=== PATIENT | male | born 1950 | race Caucasian/White ===

== ENCOUNTER → 2020-11-10 12:21 | Outpatient (CLI) | payer MEDICARE, BC, SELFPAY ==
[2020-11-10 13:13] LABS: COVID19 -Nasal RAPID Negative (Negative)
== END ==
PROVIDERS: Visit Provider Physician Assistant
DX: J02.9 Acute pharyngitis, unspecified (principal); Z20.822 Contact with and (suspected) exposure to COVID-19; R05 Cough
CPT/HCPCS: 87635

== ENCOUNTER → 2024-09-07 08:03 | Outpatient (CLI) | payer MEDICARE, BC, SELFPAY ==
--- NOTE | 2024-09-07 08:10 | DI.MRI.S_ITS ---
PROCEDURE: MR KNEE RT WO CON INDICATIONS: tear of meniscus of rt knee TECHNIQUE: Noncontrast sagittal PD fast spin echo and T2 fast spin echo with fat saturation, sagittal 3-D FLASH with fat saturation; coronal T1 spin echo and PD fast spin echo with fat saturation, and axial PD fast spin echo with fat saturation through the knee. COMPARISON: None. FINDINGS: Image quality: Excellent. Menisci: There is medial extrusion of the medial meniscus into the medial gutter. There is linear oblique and vertically oriented high T2 signal intensity within the inner, middle, and peripheral 3rd of the medial meniscal body, demonstrating superior and inferior articular surface extension, indicating complex tearing. There is linear horizontal high T2 signal intensity within the inner, middle, and peripheral 3rd of the posterior horn medial meniscus, demonstrating inferior articular surface extension, indicating horizontal tearing. Lateral meniscal body demonstrates degenerative fraying of the free edge. Cruciate ligaments: The anterior and posterior cruciate ligaments appear intact. Medial structures: The medial collateral ligament appears intact, but demonstrates mild surrounding T2 signal elevation. Visualized portions of the pes anserinus tendons appear normal. No abnormal bursal fluid. Lateral structures: The lateral collateral ligament demonstrates mild T2 signal elevation at the femoral origin. There is a small amount of fluid signal intensity within the biceps femorals tendon at the fibular insertion site. The popliteus tendon appears normal. Iliotibial band appears normal. Anterior structures: The quadriceps and patellar tendons appear intact. Patellar alignment is normal. There is lateral ventral trochlear prominence. There is moderate edema as well as small cyst formation within the superolateral aspect of the infrapatellar fat pad. infrapatellar fat pad. Bones and cartilage: No bone marrow contusions or fractures. There is moderate subchondral degenerative marrow edema within the weight-bearing aspects of the medial femoral condyle and medial tibial plateau. Moderate articular cartilage loss overlies the weight-bearing aspects of the medial femoral condyle and medial tibial plateau. Mild articular cartilage loss overlies the weight-bearing aspects of the lateral femoral condyle and lateral tibial plateau. High-grade articular cartilage loss overlies the lateral patellar apex. Moderate articular cartilage loss overlies the lateral patellar facet inferiorly. Joint space: There is a small knee joint effusion and a small Leon's cyst. Normal appearing synovial plicae are incidentally noted. IMPRESSION: 1. Tricompartmental osteoarthritis with associated articular cartilage loss. 2. Complex tearing of the medial meniscus including a trapped medial meniscal tear. 3. Degenerative fraying of the free edge of the lateral meniscal body. 4. Medial collateral ligament strain. Low-grade lateral collateral ligament and biceps femoris tendon tear. 5. Lateral patellar friction syndrome. 6. Tricompartmental osteoarthritis with associated articular cartilage loss. 7. Small knee joint effusion and trace Leon's cyst. Dictated by: Gudelia Baker M.D. on 09/07/2024 at 12:36 Approved by: Gudelia Baker M.D. on 09/07/2024 at 12:40
== END ==
PROVIDERS: Referring Provider Orthopaedic Surgery; Visit Provider Orthopaedic Surgery
DX: S83.231A Complex tear of medial meniscus, current injury, right knee, initial encounter (principal); S83.411A Sprain of medial collateral ligament of right knee, initial encounter; S83.421A Sprain of lateral collateral ligament of right knee, initial encounter; S76.311A Strain of muscle, fascia and tendon of the posterior muscle group at thigh level, right thigh, initial encounter; M17.11 Unilateral primary osteoarthritis, right knee; M22.8X1 Other disorders of patella, right knee; X58.XXXA Exposure to other specified factors, initial encounter; M25.461 Effusion, right knee
CPT/HCPCS: 73721